=== PATIENT | male | born 1950 | race Caucasian/White ===

== ENCOUNTER 2017-10-14 08:06 | Day surgery (SDC) | payer MEDICARE, OTHER ==
[2017-10-14] MEDS ORDERED: Lactated Ringers 1,000 ML IV SCH (08:30)
[2017-10-14] MEDS ORDERED: Midazolam 1 MG/ML 2 ML SDV ONE (09:19)
[2017-10-14] MEDS ORDERED: Propofol 200 MG/20 ML SDV ONE (09:19)
[2017-10-14] MEDS ORDERED: fentaNYL 100 MCG/2 ML SDV ONE (09:19)
--- NOTE | 2017-10-14 10:52 | OR ---
DATE OF PROCEDURE: 10/14/2017 PROCEDURE: Colonoscopy. FINDINGS: Diverticulosis, mild, limited to sigmoid colon. COMPLICATIONS: None. MEDIA LIAISON OFFICER: None. PREOPERATIVE DIAGNOSIS: Screening colonoscopy. POSTOPERATIVE DIAGNOSIS: Screening colonoscopy. RISKS: Risks, benefits, alternatives, and limitations including, but not limited to infection, bleeding, and perforation were explained to the patient, and he wished to proceed. PROCEDURE IN DETAIL: The patient was placed in the left lateral decubitus position. Digital rectal exam was performed without abnormality. Scope was introduced and advanced atraumatically to the ileocecal valve. The scope was brought back through the ascending, transverse, descending colon and retroflexed. No polyps. No masses. No old or new blood. The patient did have diverticulosis, which was noted in the sigmoid colon. No abnormalities on retroflex. The patient tolerated the procedure well. Blue Prince MD /[id number]
[2017-10-14 10:53] VITALS: BP 124/71
== END 2017-10-14 11:25 | disposition home or self-care (01) ==
LOC: JP.SDS 08:06
PROVIDERS: ATTEND Surgery
DX: Z12.11 Encounter for screening for malignant neoplasm of colon (principal); K57.30 Diverticulosis of large intestine without perforation or abscess without bleeding; N18.9 Chronic kidney disease, unspecified; I25.10 Atherosclerotic heart disease of native coronary artery without angina pectoris; I50.9 Heart failure, unspecified; I48.91 Unspecified atrial fibrillation; K21.9 Gastro-esophageal reflux disease without esophagitis; M19.90 Unspecified osteoarthritis, unspecified site; K44.9 Diaphragmatic hernia without obstruction or gangrene; E66.9 Obesity, unspecified; Z79.899 Other long term (current) drug therapy; Z88.5 Allergy status to narcotic agent; Z88.8 Allergy status to other drugs, medicaments and biological substances
CPT/HCPCS: G0121; J2250; J2704; J3010; J7120

== ENCOUNTER 2021-08-06 07:45 | Day surgery (SDC) | payer MEDICARE, OTHER ==
[~2021-08-06 07:45] MED LIST: Bupivacaine 0.5% 30 ML SDV ONE
[2021-08-06] MEDS ORDERED: Nozin Nasal Sanitizer NASBOTH ONE (08:15)
[2021-08-06 08:35] LABS: CORONAVIRUS COVID-19 NAA NEGATIVE (NEGATIVE)
[2021-08-06] MEDS ORDERED: Lactated Ringers 1,000 ML IV SCH (08:45)
[2021-08-06] MEDS ORDERED: ceFAZolin 2 GM in Premix Bag 1 BAG IV ONE (08:45)
[2021-08-06] MEDS ORDERED: Scopolamine 1.5 MG Transdermal Patch TOP SCH (09:00)
[2021-08-06] MEDS ORDERED: fentaNYL 100 MCG/2 ML SDV ONE ×2 (09:18→11:29)
[2021-08-06] MEDS ORDERED: Propofol 200 MG/20 ML SDV ONE ×2 (09:18→11:15)
[2021-08-06] MEDS ORDERED: Bupivacaine 0.5% 30 ML SDV ONE ×2 (09:18→09:55)
[2021-08-06] MEDS ORDERED: Midazolam 1 MG/ML 2 ML SDV ONE (09:18)
[2021-08-06 14:59] VITALS: BP 125/78; PULSE 68
== END 2021-08-06 14:45 | disposition home or self-care (01) ==
LOC: JP.SDS 07:45
PROVIDERS: ATTEND Specialist
DX: S46.011A Strain of muscle(s) and tendon(s) of the rotator cuff of right shoulder, initial encounter (principal); I10 Essential (primary) hypertension; I25.10 Atherosclerotic heart disease of native coronary artery without angina pectoris; I11.0 Hypertensive heart disease with heart failure; I50.9 Heart failure, unspecified; Z87.891 Personal history of nicotine dependence; Z79.899 Other long term (current) drug therapy; Z01.812 Encounter for preprocedural laboratory examination; Z20.822 Contact with and (suspected) exposure to COVID-19
CPT/HCPCS: 0241U; 23410; 36415; 80053; 85027; 85610; 93005; A9270; C1713; J0690; J2250; J2704; J3010; J3490; J7120

== ENCOUNTER 2021-11-12 08:08 | Day surgery (SDC) | payer MEDICARE, OTHER ==
[2021-11-12] MEDS ORDERED: fentaNYL 250 MCG/5 ML SDV ONE (08:23)
[2021-11-12] MEDS ORDERED: Ondansetron 4 MG/2 ML SDV ONE (08:23)
[2021-11-12] MEDS ORDERED: Neostigmine Methylsulfate 1 MG/ML 5 ML Syringe ONE (08:23)
[2021-11-12] MEDS ORDERED: Propofol 200 MG/20 ML SDV ONE (08:23)
[2021-11-12] MEDS ORDERED: Succinylcholine 200 MG/10 ML MDV ONE (08:23)
[2021-11-12] MEDS ORDERED: Dexamethasone 4 MG/ML SDV ONE (08:23)
[2021-11-12] MEDS ORDERED: Rocuronium 50 MG/5 ML Vial ONE (08:23)
[2021-11-12] MEDS ORDERED: Glycopyrrolate 0.2 MG/ML 5 ML MDV ONE (08:23)
[2021-11-12] MEDS ORDERED: Bupivacaine 0.5% 30 ML SDV ONE (08:26)
[2021-11-12] MEDS ORDERED: ceFAZolin 2 GM in Premix Bag 1 BAG IV ONE (09:00)
[2021-11-12] MEDS ORDERED: Lactated Ringers 1,000 ML IV SCH (09:00)
[2021-11-12] MEDS ORDERED: Bupivacaine 0.5% 50 ML MDV ONE (09:22)
[2021-11-12] MEDS ORDERED: ePHEDrine 50 MG/ML SDV ONE (10:32)
[2021-11-12] MEDS ORDERED: Phenylephrine 1% 10 MG/ML SDV ONE (10:34)
[2021-11-12] MEDS ORDERED: Sodium Chloride 0.9% 10 ML ONE (10:35)
[2021-11-12] MEDS ORDERED: Lactated Ringers 1,000 ML ONE (11:42)
[2021-11-12] MEDS ORDERED: traMADol 50 MG Tab PO PRN (12:10)
[2021-11-12] MEDS ORDERED: HYDROmorphone 0.5 MG/0.5 ML Syringe IVPUSH PRN (12:10)
[2021-11-12] MEDS ORDERED: Ondansetron 4 MG/2 ML SDV IVPUSH PRN (12:10)
[2021-11-12] MEDS ORDERED: oxyCODONE 5 MG Tab PO PRN ×2 (12:10)
[2021-11-12] MEDS ORDERED: Nitroglycerin 0.4 MG Tab.SL SL PRN (12:17)
[2021-11-12] MEDS: Acetaminophen 500 MG Tab PO SCH ×2 (13:41→19:21)
[2021-11-12] MEDS: Ketorolac 30 MG/ML SDV IVPUSH SCH ×2 (13:41→21:05)
[2021-11-12] MEDS: Nozin Nasal Sanitizer NASBOTH SCH ×2 (15:42→20:30)
[2021-11-12] MEDS: Sodium Chloride 0.9% 1,000 ML IV SCH (18:00)
[2021-11-12] MEDS: ceFAZolin 1 GM in Premix Bag 1 BAG IV SCH (18:03)
[2021-11-12] MEDS: Docusate Sodium 100 MG Cap PO SCH (20:30)
[2021-11-12] MEDS ORDERED: Benzocaine/Cetylpyridinium/Menthol Lozenge MUCMEM PRN (20:35)
[2021-11-12] MEDS ORDERED: Nozin Nasal Sanitizer NASBOTH SCH (21:00)
[2021-11-13] MEDS: Acetaminophen 500 MG Tab PO SCH ×3 (01:25→13:09)
[2021-11-13] MEDS: ceFAZolin 1 GM in Premix Bag 1 BAG IV SCH ×2 (01:25→09:10)
[2021-11-13] MEDS: Sodium Chloride 0.9% 1,000 ML IV SCH (03:20)
[2021-11-13] MEDS ORDERED: Pantoprazole 40 MG Tab.CR PO SCH (07:30)
[2021-11-13] MEDS ORDERED: metFORMIN 500 MG Tab PO SCH (08:00)
[2021-11-13] MEDS ORDERED: Metoprolol Succinate 25 MG Tab.ER PO SCH (09:00)
[2021-11-13] MEDS ORDERED: Furosemide 20 MG Tab PO SCH (09:00)
[2021-11-13] MEDS ORDERED: Lisinopril 5 MG Tab PO SCH (09:00)
[2021-11-13] MEDS ORDERED: Rosuvastatin 10 MG Tab PO SCH (09:00)
[2021-11-13] MEDS ORDERED: Celecoxib 200 MG Cap PO SCH (09:00)
[2021-11-13] MEDS ORDERED: Allopurinol 100 MG Tab PO SCH (09:00)
[2021-11-13] MEDS ORDERED: Colchicine 0.6 MG Tab PO SCH (09:00)
[2021-11-13] MEDS: Nozin Nasal Sanitizer NASBOTH SCH (09:04)
[2021-11-13] MEDS: Docusate Sodium 100 MG Cap PO SCH (09:04)
[2021-11-13 10:33] VITALS: BP 124/59; PULSE 62
[2021-11-13] MEDS ORDERED: Warfarin 5 MG Tab PO SCH (13:00)
== END 2021-11-13 14:15 | disposition home or self-care (01) ==
LOC: JP.SDS 08:08 → JP.MS 12:10 → JP.SDS 11-13 14:15
PROVIDERS: ATTEND Specialist
DX: M75.101 Unspecified rotator cuff tear or rupture of right shoulder, not specified as traumatic (principal); S46.111A Strain of muscle, fascia and tendon of long head of biceps, right arm, initial encounter; I25.10 Atherosclerotic heart disease of native coronary artery without angina pectoris; E11.9 Type 2 diabetes mellitus without complications; K21.9 Gastro-esophageal reflux disease without esophagitis; Z79.82 Long term (current) use of aspirin; Z79.899 Other long term (current) drug therapy; Z88.8 Allergy status to other drugs, medicaments and biological substances; Z87.891 Personal history of nicotine dependence
CPT/HCPCS: 36415; 73020-26-RT; 73020-RT; 80053; 82947; 85027; 85610; 97110-GP; 97140-GP; 97161-GP; A9270-GY; C1713; C1776; J0330; J0690; J1100; J1885; J2370; J2405; J2704; J2710; J3010; J3490; J7030; J7120

== ENCOUNTER 2023-02-18 18:57 | Emergency (ER) | payer MEDICARE, OTHER ==
[2023-02-18] MEDS ORDERED: Nitroglycerin/D5W 25 MG/250 ML BOTTLE IV SCH (19:45)
[2023-02-18 19:53] LABS: ANION GAP 13.7 mmol/L (5.0-14.0); CALCIUM 8.3 mg/dL (8.5-10.1); CREATININE 1.5 mg/dL (0.8-1.3); EST CRCL DRUG DOSING (CG) 50.31 mL/min; POTASSIUM,K 3.7 mmol/L (3.6-5.2); TROPONIN I HIGH SENSITIVITY 11.7 pg/mL (<=60.3)
[2023-02-19 00:04] VITALS: BP 165/102; PULSE 61
== END 2023-02-19 01:00 | disposition other institution (70) ==
LOC: JP.ED 18:57
DX: I20.8 Other forms of angina pectoris (principal); E78.00 Pure hypercholesterolemia, unspecified; I10 Essential (primary) hypertension; K21.9 Gastro-esophageal reflux disease without esophagitis; M10.9 Gout, unspecified; E11.9 Type 2 diabetes mellitus without complications; E66.9 Obesity, unspecified; Z68.31 Body mass index [BMI] 31.0-31.9, adult; Z79.01 Long term (current) use of anticoagulants; Z88.8 Allergy status to other drugs, medicaments and biological substances; Z88.5 Allergy status to narcotic agent; Z79.82 Long term (current) use of aspirin; Z79.899 Other long term (current) drug therapy
CPT/HCPCS: 36415; 80048; 84484; 93005; 99285

== ENCOUNTER 2024-07-20 10:45 | Inpatient (IN) | payer MEDICARE, OTHER ==
[2024-07-20] MEDS ORDERED: Sodium Chloride 0.9% 10 ML Syringe FLUSH PRN (10:53)
[2024-07-20 12:14] LABS: BASOPHILS ABSOLUTE AUTO 0.03 K/uL (0.00-0.10); BASOPHILS PERCENT AUTO 0.3 % (0.1-1.3); EOSINOPHILS ABSOLUTE AUTO 0.26 K/uL (0.00-0.40); EOSINOPHILS PERCENT AUTO 2.6 % (0.0-5.4); HEMATOCRIT 39.4 % (38.4-49.7); HEMOGLOBIN 13.8 g/dL (12.9-16.9); IMMATURE GRAN ABSOLUTE AUTO 0.04 K/uL (0.00-0.23); IMMATURE GRAN PERCENT AUTO 0.4 % (0.0-0.7); LYMPHOCYTES ABSOLUTE AUTO 1.58 K/uL (0.8-3.3); LYMPHOCYTES PERCENT AUTO 15.9 % (11.4-47.7); MEAN CORPUSCULAR HEMOGLOBIN 33.5 pg (31.6-35.5); MEAN CORPUSCULAR VOLUME 95.6 fL (81.4-99.0); MONOCYTES ABSOLUTE AUTO 0.98 K/uL (0.20-0.90); MONOCYTES PERCENT AUTO 9.8 % (3.3-12.6); NEUTROPHILS ABSOLUTE AUTO 7.06 K/uL (1.0-7.6); PLATELET COUNT,PLT 105 K/uL (130-375); RED BLOOD CELL COUNT 4.12 M/uL (4.14-5.76)
[2024-07-20 12:30] LABS: INR 2.3; PROTHROMBIN TIME 22.3 sec (9.2-10.6)
[2024-07-20 12:40] LABS: CALCIUM 8.8 mg/dL (8.5-10.1); CREATININE 2.3 mg/dL (0.8-1.3); EST CRCL DRUG DOSING (CG) 31.84 mL/min; MAGNESIUM 1.8 mg/dL (1.8-2.4); POTASSIUM,K 4.2 mmol/L (3.6-5.2); TROPONIN I HIGH SENSITIVITY 10.6 pg/mL (<=60.3)
[2024-07-20 12:47] LABS: ANION GAP 15.2 mmol/L (5.0-14.0)
[2024-07-20] MEDS: Lactated Ringers 500 ML IV ONE (13:05)
[2024-07-20] MEDS ORDERED: Lactated Ringers 500 ML IV SCH (14:00)
[2024-07-20 14:07] LABS: APPEARANCE,URINE CLEAR (CLEAR); BILIRUBIN,URINE NEGATIVE (NEGATIVE); COLOR,URINE YELLOW (YELLOW); GLUCOSE,URINE >=1000 mg/dL (NEGATIVE); KETONES,URINE NEGATIVE (NEGATIVE); LEUKOCYTE ESTERASE,URINE NEGATIVE (NEGATIVE); NITRITE,URINE NEGATIVE (NEGATIVE); OCCULT BLOOD,URINE TRACE-INTACT (NEGATIVE); PROTEIN,URINE TRACE mg/dL (NEGATIVE); UROBILINOGEN,URINE 0.2 EU/dL (0.2-1.0)
[2024-07-20 14:07] LABS: HEMOGLOBIN A1C > 14.0 % (4.5-6.2)
[2024-07-20 14:25] LABS: BACTERIA,URINE RARE; EPITHELIAL CELLS,URINE RARE; RBC,URINE 0-5 (0-5); WBC,URINE 0-5 (0-5)
[2024-07-20 14:26] LABS: AMORPHOUS SEDIMENT,URINE NOT SEEN; MUCUS,URINE NOT SEEN
[2024-07-20] MEDS: Insulin Lispro 100 Unit/ML 3 ML KwikPen SUBCUT ONE (14:33)
[2024-07-20] MEDS ORDERED: Ondansetron 4 MG Tab.DIS PO PRN (14:46)
[2024-07-20] MEDS ORDERED: oxyCODONE 5 MG Tab PO PRN (14:46)
[2024-07-20] MEDS ORDERED: Ondansetron 4 MG/2 ML SDV IV PRN (14:46)
[2024-07-20] MEDS: Insulin Lispro 100 Unit/ML 3 ML KwikPen SUBCUT SCH (16:38)
[2024-07-20] MEDS: Insulin Glargine,Human Rec. Analog 100 Units/ML 3 ML Pen SUBCUT SCH (21:13)
[2024-07-20] MEDS: Magnesium Oxide 400 MG Tab PO SCH (21:14)
[2024-07-20] MEDS: Topiramate 25 MG Tab PO SCH (21:14)
[2024-07-20] MEDS: Acetaminophen 325 MG Tab PO PRN (21:24)
[2024-07-21 06:17] LABS: CALCIUM 8.8 mg/dL (8.5-10.1); EST CRCL DRUG DOSING (CG) 36.62 mL/min; POTASSIUM,K 3.8 mmol/L (3.6-5.2)
[2024-07-21 06:19] LABS: ANION GAP 11.8 mmol/L (5.0-14.0)
[2024-07-21 06:25] LABS: INR 2.3; PROTHROMBIN TIME 22.4 sec (9.2-10.6)
[2024-07-21] MEDS: Rosuvastatin 10 MG Tab PO SCH (08:07)
[2024-07-21] MEDS: Aspirin 81 MG Tab.EC PO SCH (08:07)
[2024-07-21] MEDS: Pantoprazole 40 MG Tab.CR PO SCH (08:07)
[2024-07-21] MEDS: FLUoxetine 20 MG Cap PO SCH (08:08)
[2024-07-21] MEDS: Allopurinol 100 MG Tab PO SCH (08:08)
[2024-07-21] MEDS: Metoprolol Succinate 25 MG Tab.ER PO SCH (08:08)
[2024-07-21] MEDS: Warfarin 5 MG Tab PO SCH (12:37)
[2024-07-21] MEDS ORDERED: Warfarin 2.5 MG Tab PO SCH (13:00)
[2024-07-22 05:08] LABS: CALCIUM 8.8 mg/dL (8.5-10.1); CREATININE 2.1 mg/dL (0.8-1.3); EST CRCL DRUG DOSING (CG) 34.88 mL/min; POTASSIUM,K 4.2 mmol/L (3.6-5.2)
[2024-07-22 05:11] LABS: INR 1.9; PROTHROMBIN TIME 18.9 sec (9.2-10.6)
[2024-07-22 05:19] LABS: ANION GAP 14.2 mmol/L (5.0-14.0)
[2024-07-22] MEDS: Insulin Glargine,Human Rec. Analog 100 Units/ML 3 ML Pen SUBCUT SCH (09:25)
[2024-07-22] MEDS: Sennosides/Docusate Sodium 50-8.6 MG Tab PO PRN (09:32)
[2024-07-22] MEDS ORDERED: Warfarin 5 MG Tab PO SCH (13:00)
[2024-07-23 04:37] LABS: HEMATOCRIT 39.4 % (38.4-49.7); HEMOGLOBIN 13.6 g/dL (12.9-16.9); MEAN CORPUSCULAR HEMOGLOBIN 33.3 pg (31.6-35.5); MEAN CORPUSCULAR HGB CONC 34.5 g/dL (31.6-35.5); MEAN CORPUSCULAR VOLUME 96.3 fL (81.4-99.0); RED BLOOD CELL COUNT 4.09 M/uL (4.14-5.76); WHITE BLOOD CELL COUNT,WBC 8.3 K/uL (3.2-11.0)
[2024-07-23 04:53] LABS: INR 1.7; PROTHROMBIN TIME 16.6 sec (9.2-10.6)
[2024-07-23 05:06] LABS: CALCIUM 8.5 mg/dL (8.5-10.1); CREATININE 1.9 mg/dL (0.8-1.3); EST CRCL DRUG DOSING (CG) 38.55 mL/min; POTASSIUM,K 3.9 mmol/L (3.6-5.2); TSH ULTRASENSITIVE 1.599 uIU/mL (0.358-3.740)
[2024-07-23 05:07] LABS: ANION GAP 13.9 mmol/L (5.0-14.0)
[2024-07-23] MEDS: Insulin Glargine,Human Rec. Analog 100 Units/ML 3 ML Pen SUBCUT SCH (08:32)
[2024-07-23] MEDS: Warfarin 2.5 MG Tab PO ONE (13:55)
[2024-07-24] MEDS: Insulin Glargine,Human Rec. Analog 100 Units/ML 3 ML Pen SUBCUT SCH (07:51)
[2024-07-24] MEDS: Magnesium Hydroxide 400 MG/5 ML Susp 30 ML Cup PO PRN (08:23)
[2024-07-24 11:11] VITALS: BP 137/83; PULSE 56
== END 2024-07-24 13:18 | disposition home or self-care (01) | DRG 638 ==
LOC: JP.ED 10:45 → JP.MS 13:59
PROVIDERS: ADMIT Internal Medicine; ATTEND Internal Medicine
DX: E11.65 Type 2 diabetes mellitus with hyperglycemia (principal); E87.1 Hypo-osmolality and hyponatremia; I48.91 Unspecified atrial fibrillation; I13.0 Hypertensive heart and chronic kidney disease with heart failure and stage 1 through stage 4 chronic kidney disease, or unspecified chronic kidney disease; I48.19 Other persistent atrial fibrillation; N17.9 Acute kidney failure, unspecified; I50.22 Chronic systolic (congestive) heart failure; H26.9 Unspecified cataract; H54.7 Unspecified visual loss; K21.9 Gastro-esophageal reflux disease without esophagitis; E66.9 Obesity, unspecified; I25.10 Atherosclerotic heart disease of native coronary artery without angina pectoris; I25.5 Ischemic cardiomyopathy; N18.32 Chronic kidney disease, stage 3b; E11.22 Type 2 diabetes mellitus with diabetic chronic kidney disease; J43.9 Emphysema, unspecified; Z86.16 Personal history of COVID-19; Z98.49 Cataract extraction status, unspecified eye; Z90.89 Acquired absence of other organs; Z95.5 Presence of coronary angioplasty implant and graft; Z98.890 Other specified postprocedural states; Z87.891 Personal history of nicotine dependence; Z88.5 Allergy status to narcotic agent; Z88.8 Allergy status to other drugs, medicaments and biological substances; Z79.82 Long term (current) use of aspirin; Z79.01 Long term (current) use of anticoagulants; Z79.899 Other long term (current) drug therapy; Z79.1 Long term (current) use of non-steroidal anti-inflammatories (NSAID); Z79.02 Long term (current) use of antithrombotics/antiplatelets; Z68.29 Body mass index [BMI] 29.0-29.9, adult; Z90.49 Acquired absence of other specified parts of digestive tract
CPT/HCPCS: 36415; 71045; 80048; 81001; 82009; 82800; 83036; 83735; 83880; 84100; 84484; 85025; 85610; 87428; 93005; 96360; 99285; J1815; J7120; 71250; 74176; 82947; 84443; 85027; A9270-GY

== ENCOUNTER 2024-11-22 08:55 | Emergency (ER) | payer MEDICARE, OTHER ==
[2024-11-22 10:17] LABS: BASOPHILS ABSOLUTE AUTO 0.04 K/uL (0.00-0.10); BASOPHILS PERCENT AUTO 0.4 % (0.1-1.3); EOSINOPHILS ABSOLUTE AUTO 0.07 K/uL (0.00-0.40); EOSINOPHILS PERCENT AUTO 0.7 % (0.0-5.4); HEMATOCRIT 43.2 % (38.4-49.7); HEMOGLOBIN 14.2 g/dL (12.9-16.9); IMMATURE GRAN ABSOLUTE AUTO 0.03 K/uL (0.00-0.23); IMMATURE GRAN PERCENT AUTO 0.3 % (0.0-0.7); LYMPHOCYTES ABSOLUTE AUTO 0.92 K/uL (0.8-3.3); LYMPHOCYTES PERCENT AUTO 9.7 % (11.4-47.7); MEAN CORPUSCULAR HGB CONC 32.9 g/dL (31.6-35.5); MEAN CORPUSCULAR VOLUME 100.5 fL (81.4-99.0); MONOCYTES ABSOLUTE AUTO 1.18 K/uL (0.20-0.90); MONOCYTES PERCENT AUTO 12.5 % (3.3-12.6); NEUTROPHILS ABSOLUTE AUTO 7.21 K/uL (1.0-7.6); NEUTROPHILS PERCENT AUTO 76.4 % (40.0-78.1); PLATELET COUNT,PLT 106 K/uL (130-375); WHITE BLOOD CELL COUNT,WBC 9.5 K/uL (3.2-11.0)
[2024-11-22 10:34] LABS: INR 2.2; PROTHROMBIN TIME 21.6 sec (9.2-10.6)
[2024-11-22 10:42] LABS: A/G RATIO 0.9 (1.2-2.2); ALANINE AMINOTRANSFERASE,ALT 29 U/L (12-78); ALBUMIN 3.4 g/dL (3.4-5.0); ALKALINE PHOSPHATASE 110 U/L (46-116); ASPARTATE AMNIOTRANSFERASE,AST 21 U/L (15-37); BILIRUBIN TOTAL 0.7 mg/dL (0.2-1.0); BLOOD UREA NITROGEN,BUN 28 mg/dL (7-18); CALCIUM 8.6 mg/dL (8.5-10.1); CARBON DIOXIDE,CO2 20 mmol/L (21-32); CHLORIDE,CL 105 mmol/L (100-108); CREATININE 2.2 mg/dL (0.8-1.3); EST CRCL DRUG DOSING (CG) 33.29 mL/min; ESTIMATED GFR 31 mL/min (>60); GLUCOSE RANDOM 147 mg/dL (74-106); POTASSIUM,K 4.2 mmol/L (3.6-5.2); PROTEIN TOTAL,TP 7.2 g/dL (6.4-8.2); SODIUM,NA 138 mmol/L (140-148)
[2024-11-22 10:44] LABS: ANION GAP 17.2 mmol/L (5.0-14.0)
[2024-11-22 11:03] VITALS: BP 98/59; PULSE 66
== END 2024-11-22 11:44 | disposition home or self-care (01) ==
LOC: JP.ED 08:55
DX: J40 Bronchitis, not specified as acute or chronic (principal); K21.9 Gastro-esophageal reflux disease without esophagitis; E11.9 Type 2 diabetes mellitus without complications; E66.9 Obesity, unspecified; Z88.5 Allergy status to narcotic agent; Z88.8 Allergy status to other drugs, medicaments and biological substances; Z79.82 Long term (current) use of aspirin; Z79.4 Long term (current) use of insulin; Z79.899 Other long term (current) drug therapy; Z86.16 Personal history of COVID-19; Z90.49 Acquired absence of other specified parts of digestive tract; Z87.891 Personal history of nicotine dependence; Z68.32 Body mass index [BMI] 32.0-32.9, adult
CPT/HCPCS: 36415; 71046; 80053; 83605; 85025; 85610; 99285; U0002

== ENCOUNTER 2025-05-08 09:44 | Emergency (ER) | payer MEDICARE, OTHER ==
[2025-05-08] MEDS ORDERED: Sodium Chloride 0.9% 10 ML Syringe FLUSH PRN (10:09)
[2025-05-08] MEDS ORDERED: Nitroglycerin 0.4 MG Tab.SL SL PRN (10:09)
[2025-05-08] MEDS ORDERED: fentaNYL 100 MCG/2 ML SDV IVPUSH ONE (10:10)
[2025-05-08 10:27] LABS: BASOPHILS ABSOLUTE AUTO 0.05 K/uL (0.00-0.10); BASOPHILS PERCENT AUTO 0.5 % (0.1-1.3); EOSINOPHILS ABSOLUTE AUTO 0.43 K/uL (0.00-0.40); EOSINOPHILS PERCENT AUTO 4.7 % (0.0-5.4); IMMATURE GRAN PERCENT AUTO 0.2 % (0.0-0.7); LYMPHOCYTES ABSOLUTE AUTO 2.06 K/uL (0.8-3.3); LYMPHOCYTES PERCENT AUTO 22.4 % (11.4-47.7); MONOCYTES ABSOLUTE AUTO 0.86 K/uL (0.20-0.90); MONOCYTES PERCENT AUTO 9.4 % (3.3-12.6); NEUTROPHILS ABSOLUTE AUTO 5.77 K/uL (1.0-7.6); NEUTROPHILS PERCENT AUTO 62.8 % (40.0-78.1); PLATELET COUNT,PLT 114 K/uL (130-375); RED BLOOD CELL COUNT 4.32 M/uL (4.14-5.76); WHITE BLOOD CELL COUNT,WBC 9.2 K/uL (3.2-11.0)
[2025-05-08 10:29] LABS: IMMATURE GRAN ABSOLUTE AUTO 0.02 K/uL (0.00-0.23)
[2025-05-08 10:47] LABS: A/G RATIO 0.9 (1.2-2.2); ALANINE AMINOTRANSFERASE,ALT 25 U/L (12-78); ASPARTATE AMNIOTRANSFERASE,AST 14 U/L (15-37); BILIRUBIN TOTAL 0.6 mg/dL (0.2-1.0); BLOOD UREA NITROGEN,BUN 34 mg/dL (7-18); CARBON DIOXIDE,CO2 23 mmol/L (21-32); CHLORIDE,CL 104 mmol/L (100-108); CREATININE 1.9 mg/dL (0.8-1.3); EST CRCL DRUG DOSING (CG) 37.96 mL/min; ESTIMATED GFR 36 mL/min (>60); GLUCOSE RANDOM 292 mg/dL (74-106); POTASSIUM,K 4.4 mmol/L (3.6-5.2); PROTEIN TOTAL,TP 6.5 g/dL (6.4-8.2); SODIUM,NA 137 mmol/L (140-148); TROPONIN I HIGH SENSITIVITY 13.5 pg/mL (<=60.3)
[2025-05-08 10:56] LABS: INR 2.7
[2025-05-08 13:08] VITALS: BP 101/57; PULSE 56
== END 2025-05-08 13:58 | disposition home or self-care (01) ==
LOC: JP.ED 09:44
DX: R07.89 Other chest pain (principal); I48.91 Unspecified atrial fibrillation; E78.00 Pure hypercholesterolemia, unspecified; E11.9 Type 2 diabetes mellitus without complications; E66.9 Obesity, unspecified; Z88.5 Allergy status to narcotic agent; Z79.82 Long term (current) use of aspirin; Z79.899 Other long term (current) drug therapy; Z90.49 Acquired absence of other specified parts of digestive tract; Z87.891 Personal history of nicotine dependence
CPT/HCPCS: 36415; 71045; 80053; 83605; 84484; 85025; 85610; 93005; 93242; 99285; A9270

== ENCOUNTER 2025-05-17 12:22 | Emergency (ER) | payer MEDICARE, OTHER ==
[2025-05-17 12:56] LABS: BASOPHILS ABSOLUTE AUTO 0.04 K/uL (0.00-0.10); BASOPHILS PERCENT AUTO 0.4 % (0.1-1.3); EOSINOPHILS ABSOLUTE AUTO 0.37 K/uL (0.00-0.40); EOSINOPHILS PERCENT AUTO 4.1 % (0.0-5.4); IMMATURE GRAN ABSOLUTE AUTO 0.02 K/uL (0.00-0.23); IMMATURE GRAN PERCENT AUTO 0.2 % (0.0-0.7); LYMPHOCYTES ABSOLUTE AUTO 2.53 K/uL (0.8-3.3); LYMPHOCYTES PERCENT AUTO 28.0 % (11.4-47.7); MONOCYTES ABSOLUTE AUTO 0.76 K/uL (0.20-0.90); MONOCYTES PERCENT AUTO 8.4 % (3.3-12.6); NEUTROPHILS ABSOLUTE AUTO 5.31 K/uL (1.0-7.6); NEUTROPHILS PERCENT AUTO 58.9 % (40.0-78.1); PLATELET COUNT,PLT 102 K/uL (130-375); RED BLOOD CELL COUNT 4.20 M/uL (4.14-5.76); WHITE BLOOD CELL COUNT,WBC 9.0 K/uL (3.2-11.0)
[2025-05-17 13:10] LABS: INR 2.7
[2025-05-17 13:14] LABS: A/G RATIO 0.9 (1.2-2.2); ALANINE AMINOTRANSFERASE,ALT 27 U/L (12-78); ASPARTATE AMNIOTRANSFERASE,AST 18 U/L (15-37); BILIRUBIN TOTAL 0.7 mg/dL (0.2-1.0); BLOOD UREA NITROGEN,BUN 31 mg/dL (7-18); CARBON DIOXIDE,CO2 28 mmol/L (21-32); CHLORIDE,CL 105 mmol/L (100-108); CREATININE 1.9 mg/dL (0.8-1.3); EST CRCL DRUG DOSING (CG) 37.96 mL/min; ESTIMATED GFR 36 mL/min (>60); GLUCOSE RANDOM 140 mg/dL (74-106); POTASSIUM,K 4.4 mmol/L (3.6-5.2); PROTEIN TOTAL,TP 7.0 g/dL (6.4-8.2); SODIUM,NA 138 mmol/L (140-148)
[2025-05-17 16:00] VITALS: BP 98/42; PULSE 67
== END 2025-05-17 16:14 | disposition home or self-care (01) ==
LOC: JP.ED 12:22
DX: R55 Syncope and collapse (principal); I48.91 Unspecified atrial fibrillation; I25.10 Atherosclerotic heart disease of native coronary artery without angina pectoris; I25.2 Old myocardial infarction; K21.9 Gastro-esophageal reflux disease without esophagitis; E11.9 Type 2 diabetes mellitus without complications; E66.9 Obesity, unspecified; Z95.5 Presence of coronary angioplasty implant and graft; Z79.899 Other long term (current) drug therapy; Z79.82 Long term (current) use of aspirin; Z79.4 Long term (current) use of insulin; Z88.8 Allergy status to other drugs, medicaments and biological substances; Z88.5 Allergy status to narcotic agent; Z68.34 Body mass index [BMI] 34.0-34.9, adult
CPT/HCPCS: 36415; 80053; 85025; 85610; 93005; 99284